=== PATIENT | male | born 1980 | race Caucasian/White ===

== ENCOUNTER 2018-11-10 19:03 | Emergency (ER) | payer OTHER, SELFPAY ==
[2018-11-10 19:06] VITALS: BP 142/89; PULSE 90; RESP 14; TEMP 36.8; O2SAT 100; BMI 25.7
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
--- NOTE | 2018-11-10 19:38 | DI.RAD.S_ITS ---
PROCEDURE: XR SHOULDER LT MIN 2V INDICATIONS: fall onto back, posterior shoulder/scapular spine pain TECHNIQUE: 3 views of the shoulder were acquired. COMPARISON: None. FINDINGS: Bones: No fractures or dislocations. No suspicious bony lesions. Visualized ribs appear intact. Soft tissues: Calcific tendinitis. IMPRESSION: No visualized acute fracture or dislocation. However, if clinical concern and/or pain persist, short interval imaging followup in 7-10 days is recommended, as occult injury cannot be definitively excluded. Dictated by: Minnie Anton M.D. on 11/10/2018 at 20:04 Approved by: Minnie Anton M.D. on 11/10/2018 at 20:04
[2018-11-10] MEDS: IBUPROFEN 400 MG TABLET 800 MG PO (19:41)
[2018-11-10 20:40] VITALS: BP 131/86; PULSE 75; RESP 12; O2SAT 100
== END 2018-11-10 20:43 | disposition home or self-care (01) ==
PROVIDERS: Emergency Provider Internal Medicine
DX: S40.012A Contusion of left shoulder, initial encounter (principal); S46.019A Strain of muscle(s) and tendon(s) of the rotator cuff of unspecified shoulder, initial encounter; W19.XXXA Unspecified fall, initial encounter
CPT/HCPCS: 73030; 99283

== ENCOUNTER 2018-12-21 18:00 | Emergency (ER) | payer OTHER, SELFPAY ==
[2018-12-21 18:11] VITALS: BP 126/77; PULSE 83; RESP 16; TEMP 36.6; O2SAT 100; BMI 24.1
--- NOTE | 2018-12-21 18:52 | ED.CHESTPAIN ---
HPI - Chest Pain General Chief Complaint: Chest Pain Stated Complaint: chest pain, dull, on left center Time Seen by Provider: 12/21/18 18:52 Source: patient Mode of arrival: ambulatory Limitations: no limitations History of Present Illness HPI narrative: The patient has been experiencing left upper chest pain for 2 weeks. The pain does not radiate. The pain is exacerbated somewhat by coughing, and deep breathing. He has no cardiac history. He has no associated dyspnea. He does not have hypertension, diabetes or hyperlipidemia. He is not a smoker. He fell on ice 1 month ago, landing hard on his back and injuring his left shoulder. He has no recent illness. The left anterior chest pain seemed to start at a time when the left shoulder was bothering him. he has undergone a 40 lb weight loss in recent months. In recent workup by his doctor, CMP, CBC and TSH were normal. Fecal occult samples are pending. He feels healthy, he feels good. He has no recent illness. He has no dyspnea, orthopnea or edema. There is no family history of early cardiac disease, cancer or thyroid disease. Related Data Home Medications Medication Instructions Recorded Confirmed No Known Home Medications 11/10/18 11/10/18 Allergies Allergy/AdvReac Type Severity Reaction Status Date / Time No Known Drug Allergies Allergy Verified 12/21/18 18:11 Review of Systems Review of Systems ROS Unobtainable: All systems reviewed & are unremarkable except as noted in HPI and below Constitutional Denies chills, Denies fever(s), Denies lethargy and Denies weakness ENT Ears, Nose, Mouth, and Throat: Denies change in voice, Denies neck pain and Denies sore throat Cardiovascular Reports as per HPI, Reports chest pain, Denies edema, Denies irregular heart rhythm, Denies lightheadedness, Denies palpitations, Denies dyspnea, Denies dyspnea on exertion and Denies orthopnea Respiratory Denies cough, Denies dyspnea, Denies dyspnea on exertion and Denies wheezing Gastrointestinal Gastrointestinal: Denies abdominal pain, Denies change in bowel habits, Denies diarrhea, Denies nausea and Denies vomiting Musculoskeletal Denies back pain and Denies neck pain Integumentary/Breasts Denies pruritus, Denies erythema, Denies rash and Denies wounds Neurologic Denies weakness Endocrine Denies palpitations Allergic/Immunologic Denies wheezing [facility] Medical History Hx of compression fracture of spine (Resolved) Surgical History No history of previous surgery (Acute) Family History Other Family history non-contributory Social History Smoking Status: Never smoker Family History Other Family history non-contributory Social History Smoking Status: Never smoker Exam Initial Vital Signs Initial Vital Signs: Vital Signs Temperature 97.8 F 12/21/18 18:11 Pulse Rate 83 12/21/18 18:11 Respiratory Rate 16 12/21/18 18:11 Blood Pressure 126/77 12/21/18 18:11 Pulse Oximetry 100 12/21/18 18:11 Const General: cooperative and well developed Nutritional Appearance: well nourished Orientation: alert, awake, oriented x3 and not confused HENMI Head: normocephalic and atraumatic Mouth: oral mucosae normal Throat: posterior oropharynx normal, tonsils normal and uvula midline Eyes General: appearance normal, both eyes and all related structures Eyelids: eyelids normal Conjunctivae: conjunctivae normal Sclera: sclerae normal Pupils: PERRL EOM: EOM intact bilaterally Neck Thyroid: thyroid normal Lymphatic: No lymphadenopathy Chest Chest: tenderness ( left upper costal margin) Resp Effort & Inspection: normal respiratory effort, able to speak in complete sentences, no respiratory distress and no use of accessory muscles Auscultation: clear to auscultation bilaterally, no rales, no rhonchi and no wheezes Cardio Rate: regular rate Rhythm: regular rhythm Heart Sounds: no click, no gallops, no murmurs and no rubs Pulses: normal peripheral pulses GI Inspection: non-distended Palpation: soft, no hepatosplenomegaly, No guarding, No pulsatile mass and No tender Auscultation: normal bowel sounds Back/Spine/Pelvis Back: normal to inspection and No back tenderness Skin General: no rashes or lesions noted Neuro General: alert, awake, oriented x3 and no focal motor deficits Speech: speech normal Extrem General: no pedal edema and no calf tenderness Course Orders Ordered: ED Orders 12/21/18 18:14 EKG-12 Lead Stat 12/21/18 19:20 D Dimer Stat Troponin & CK Cardiac Panel Stat Vital Signs - 8 hr 12/21/18 18:11 Temperature 97.8 F Pulse Rate 83 Respiratory Rate 16 Blood Pressure 126/77 Pulse Oximetry 100 MDM - Chest Pain Lab Data Lab Results 12/21/18 12/21/18 Range/Units 19:20 19:20 D-Dimer < 200 (<230) ng/mL Total Creatine Kinase 86 (55-170) U/L CK-MB (CK-2) TNP CK-MB (CK-2) Rel Index TNP Troponin I < 0.012 (0.01-0.034) ng/mL ECG Data Attestation: I personally reviewed and interpreted this ECG as follows: ( normal sinus rhythm rate 78 bpm. Normal intervals. No ectopy. No acute ST T wave changes.) [facility] Narrative Medical decision making narrative: From the evaluation the patient has chest wall pain. The patient recall the fall a month ago, he thinks the location the pain may be consistent with his shoulder injury at that time. He will be discharged home on OTC analgesics. Discharge Plan Departure Patient Disposition: Home Clinical Impression: Chest wall muscle strain Qualifiers: Encounter type: initial encounter Qualified Code(s): S29.011A - Strain of muscle and tendon of front wall of thorax, initial encounter Discharge Date/Time: 12/21/18 20:29 Interventions: ED Discharge Assessment Last Done: 12/21/18 20:28 Instructions: Costochondritis Activity Restrictions/Additional Instructions: Tylenol or Advil as needed for pain. Continue her evaluation with her own doctor, return the ER for worsening pain or difficulty breathing. Prescriptions: No Action No Known Home Medications RF: 0
[2018-12-21 19:40] LABS: Creatine Kinase 86 U/L (55-170)
[2018-12-21 19:53] LABS: Troponin I < 0.012 ng/mL (0.01-0.034)
[2018-12-21 20:02] LABS: D Dimer < 200 ng/mL (<230)
[2018-12-21 20:28] VITALS: BP 131/81; PULSE 77; RESP 16; TEMP 36.7; O2SAT 98
== END 2018-12-21 20:29 | disposition home or self-care (01) ==
PROVIDERS: Emergency Provider Emergency Medicine
DX: S29.011A Strain of muscle and tendon of front wall of thorax, initial encounter (principal)
CPT/HCPCS: 36415; 82550; 84484; 85379; 93005; 99282; 99284

== ENCOUNTER 2019-06-08 17:07 | Emergency (ER) | payer OTHER, SELFPAY ==
[2019-06-08 17:11] VITALS: BP 138/88; PULSE 79; RESP 18; TEMP 36.1; O2SAT 98; BMI 26.4
--- NOTE | 2019-06-08 17:14 | DI.RAD.S_ITS ---
PROCEDURE: XR STERNUM MIN 2V INDICATIONS: chest injury TECHNIQUE: 2 views of the sternum acquired. COMPARISON: [facility], CR, XR CHEST 2V, 06/08/2019, 17:17. FINDINGS: On the lateral view, a superior sternal fracture is suspected, which is mildly displaced. No additional focal bony abnormality can be seen. The lungs and the surrounding soft tissues demonstrate an unremarkable appearance. IMPRESSION: Suspected mildly displaced superior sternal fracture. Please consider a dedicated CT study for further evaluation. Dictated by: Quang Jolly M.D. on 06/08/2019 at 16:55 Approved by: Quang Jolly M.D. on 06/08/2019 at 16:56
--- NOTE | 2019-06-08 17:14 | DI.RAD.S_ITS ---
PROCEDURE: XR CHEST 2V INDICATIONS: chest injury TECHNIQUE: 2 views of the chest were acquired. COMPARISON: [facility], CR, XR SHOULDER LT MIN 2V, 11/10/2018, 19:41. [facility], CR, XR STERNUM MIN 2V, 06/08/2019, 17:17. FINDINGS: Surgical changes and devices: None. Lungs and pleura: Lungs are clear. No pleural effusions or pneumothorax. Mediastinum: Mediastinal contours are normal. Heart size is normal. Bones and chest wall: No suspicious bony abnormalities. Soft tissues appear unremarkable. IMPRESSION: Negative plain films. No pneumothorax is seen. (The suspected superior sternal fracture seen on the accompanying sternal plain films is not seen on this chest study.) Dictated by: Quang Jolly M.D. on 06/08/2019 at 16:56 Approved by: Quang Jolly M.D. on 06/08/2019 at 16:57
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
--- NOTE | 2019-06-09 04:54 | ED_ITS ---
HPI - Chest Pain General Chief Complaint: Chest Pain Stated Complaint: CHEST PAIN Source: patient Mode of arrival: ambulatory Limitations: no limitations History of Present Illness HPI narrative: 39-year-old male nonsmoker with benign medical history returns to the emergency department after is voluntary denial of care earlier today. Patient suffered injury and had x-rays ordered which noted sternal fracture. Th e patient was unable to stay but willing to return when he was called by nursing staff. The patient was climbing a ladder when it fell and he caught himself with his arms. He did not fall, but caught himself and was dangling a few feet off the ground. He then let himself to the ground and as he jumped down his arms cought on a ledge or metal bar and he felt a sudden pop and tearing sensation in his anterior chest. He denies any shortness of breath, cough or sputum production. He is not dizzy nor weak or lightheaded. He did not hurt his head neck or back. MD complaint: chest pain Onset (ago): hour(s) Onset: during rest Pain location: substernal Severity: moderate Quality: sharp Pain radiation: none Relieving factors: remaining still Exacerbating factors: palpation and movement Context: trauma/injury Treatments prior to arrival chest pain: none Related Data Previous Rx's Medication Instructions Recorded hydrocodone-acetaminophen 1 tab PO Q4-6H PRN #10 tab 06/09/19 Allergies Allergy/AdvReac Type Severity Reaction Status Date / Time No Known Drug Allergies Allergy Verified 06/08/19 17:11 Review of Systems Constitutional Denies chills, Denies fever(s), Denies lethargy and Denies weakness Eyes Denies change in vision, Denies eye discharge, Denies irritation and Denies loss of vision ENT Ears, Nose, Mouth, and Throat: Denies change in voice, Denies neck pain and Denies sore throat Cardiovascular Reports chest pain, Denies irregular heart rhythm, Denies lightheadedness, Denies palpitations, Denies dyspnea, Denies dyspnea on exertion and Denies orthopnea Respiratory Denies cough, Denies dyspnea, Denies dyspnea on exertion and Denies wheezing Gastrointestinal Gastrointestinal: Denies abdominal pain, Denies change in bowel habits, Denies diarrhea, Denies nausea and Denies vomiting Genitourinary Denies hematuria, Denies flank pain, Denies urinary incontinence and Denies urinary urgency Musculoskeletal Denies neck pain Integumentary/Breasts Denies pruritus, Denies erythema, Denies rash and Denies wounds Neurologic Denies confusion, Denies loss of vision and Denies weakness Psychiatric Denies anxiety, Denies confusion, Denies depression, Denies homicidal ideation and Denies suicidal ideation Endocrine Denies palpitations Hematologic/Lymphatic Denies easy bruising Allergic/Immunologic Denies wheezing PFSH Medical History Hx of compression fracture of spine (Resolved) Surgical History No history of previous surgery (Acute) Family History Other Family history non-contributory Social History Smoking Status: Never smoker Family History Other Family history non-contributory Social History Smoking Status: Never smoker Exam Narrative Exam Narrative: GENERAL: 39-year-old male resting comfortably, appears stated age, GCS 15 HEAD: Atraumatic. Normocephalic. No temporal or scalp tenderness. EYES: Pupils equal round and reactive. Extraocular motions intact. ENT: Nose without bleeding, purulent drainage or septal hematoma. NECK: Trachea midline. No JVD or lymphadenopathy. Supple, nontender CARDIOVASCULAR: Regular rate and rhythm without murmurs, gallops, or rubs. Anterior chest is tender to palp. No crepitance or deformity. RESPIRATORY: Clear to auscultation. Breath sounds equal bilaterally. No wheezes, rales, or rhonchi. GASTROINTESTINAL: Abdomen soft, non-tender, nondistended. No hepato- splenomegaly, or palpable masses. No guarding. EXTREMITIES: No clubbing, cyanosis, or edema. No joint tenderness, effusion, or edema noted. BACK: Nontender without deformity or crepitance. No flank tenderness. NEURO: AOx3. SKIN: No rash or erythema. Initial Vital Signs Initial Vital Signs: Vital Signs Temperature 97.0 F L 06/08/19 17:11 Pulse Rate 79 08/05/19 17:11 Respiratory Rate 18 06/08/19 17:11 Blood Pressure 138/88 06/08/19 17:11 Pulse Oximetry 98 06/08/19 17:11 MDM - Chest Pain Imaging Data CT scan - chest: Radiologist's impression: No Fx or other radiographic evidence of trauma Discharge Plan Departure Patient Disposition: Left Without Being Seen Clinical Impression: Patient left after triage Discharge Date/Time: 06/08/19 18:33
== END 2019-06-08 18:33 | disposition left against medical advice (07) ==
PROVIDERS: Emergency Provider Emergency Medicine
DX: Z53.21 Procedure and treatment not carried out due to patient leaving prior to being seen by health care provider (principal)
CPT/HCPCS: 71046; 71120

== ENCOUNTER 2019-06-08 22:11 | Emergency (ER) | payer OTHER, SELFPAY ==
[2019-06-08 22:28] VITALS: PULSE 80; RESP 18; TEMP 37; O2SAT 98; BMI 27.0
[2019-06-08 22:34] VITALS: BP 139/91; PULSE 91
--- NOTE | 2019-06-08 22:34 | DI.CT.S_ITS ---
PROCEDURE: CT CHEST W CON INDICATIONS: trauma, sternal fracture TECHNIQUE: After the administration of intravenous contrast, 5 mm thick sections acquired from the pulmonary apices to the posterior costophrenic angles. 1 mm axial lung, 5 mm thick coronal and sagittal reformats and 7 mm axial MIP were acquired. For radiation dose reduction, the following was used: automated exposure control, adjustment of mA and/or kV according to patient size. COMPARISON: [facility], CR, XR STERNUM MIN 2V, 06/08/2019, 17:17. [facility], CR, XR CHEST 2V, 06/08/2019, 17:17. FINDINGS: Image quality: Excellent. Lungs and pleura: No acute air space opacities. No pleural effusions or pneumothorax. Central and peripheral airways are patent and normal in caliber. Mediastinum: Heart size is normal. No pericardial effusion. No mediastinal or hilar adenopathy by size criteria. Thoracic aorta and central pulmonary arteries are normal in size. Esophagus is normal in caliber. No hiatal hernia. Bones and chest wall: No suspicious bony lesions. No vertebral body compression fractures. No axillary or supraclavicular adenopathy by size criteria. Thyroid gland appears normal. Abdomen: Visualized upper abdominal solid organs appear normal. Upper abdominal bowel loops are normal in caliber. IMPRESSION: A prior sternal plain film study earlier same day had raised concern for presence of a sternal fracture, mildly displaced. The current study shows that the configuration of the sternum represents normal sternal segmentation anatomy, and no fracture or retrosternal edema is present. Elsewhere no trauma found. Normal for age. Note: These findings are concordant with the preliminary interpretation. Dictated by: Remington Garduno M.D. on 06/09/2019 at 8:30 Approved by: Remington Garduno M.D. on 06/09/2019 at 8:33
[2019-06-08 22:47] LABS: Add Manual Diff / Slide Review NO; Basophils Absolute Auto 100 /uL (0-100); Basophils Percent Auto 1.3 % (0-2); Eosinophils Absolute Auto 300 /uL (0-450); Eosinophils Percent Auto 3.5 % (2-4); Hematocrit 40.8 % (41-53); Hemoglobin 14.3 g/dL (13.5-17.5); Lymphocytes Absolute Auto 2900 /uL (1100-4500); Lymphocytes Percent Auto 38.3 % (25-40); Mean Corpuscular HGB Conc 35.1 % (30-36); Mean Corpuscular Hemoglobin 31.1 PG (26-34); Mean Corpuscular Volume 88.7 fL (80-100); Monocytes Absolute Auto 700 /uL (0-900); Monocytes Percent Auto 9.4 % (3-14); Neutrophils Absolute Auto 3600 /uL (1500-7000); Neutrophils Percent Auto 47.5 % (50-75); Platelet Count 236 X10^3/uL (150-400); Red Cell Distribution Width 12.9 % (11.6-14.8); White Blood Cell Count 7.5 X10^3/uL (4.5-11.0)
[2019-06-08 22:51] LABS: BUN Creatinine Ratio 15.6 (6-22); Blood Urea Nitrogen 14 mg/dL (9-20); Calcium 9.3 mg/dL (8.4-10.2); Carbon Dioxide 26 mmol/L (22-32); Chloride 104 mmol/L (98-107); Estimated Glomerular Filt Rate > 60.0 mL/min (>60); Glucose 95 mg/dL (70-100); HEMOLYSIS < 15 (0-50); Potassium 3.5 mmol/L (3.4-5.1); Sodium 140 mmol/L (137-145)
[2019-06-08 23:16] VITALS: BP 131/77; PULSE 85; RESP 16; O2SAT 98
[2019-06-09 00:59] VITALS: BP 123/70; PULSE 68; RESP 18; O2SAT 98
[2019-06-09] MEDS: HYDROCODONE/ACET 5/325 PREPACK 1 BOTTLE MISC (00:59)
--- NOTE | 2019-06-09 06:17 | ED.CHESTPAIN ---
HPI - Chest Pain General Chief Complaint: Chest Pain Stated Complaint: CHEST PAIN Time Seen by Provider: 06/08/19 22:20 Source: patient Mode of arrival: ambulatory Limitations: no limitations History of Present Illness HPI narrative: 39-year-old male nonsmoker with benign medical history returns to the emergency department after a voluntary denial of care earlier today. The patient suffered an injury and had x-rays ordered which noted a sternal fracture. The patient was unable to stay but willing to return when he was called back by nursing staff. The patient had been climbing a ladder when he fell and he caught himself with his arms. He did not fall, but instead caught himself and was dangling a few feet off the ground. He then let himself to the ground and as he jumped down his arms caught on a ledge and he felt a sudden pop and tearing sensation in his anterior chest. He denies any shortness of breath, cough or sputum production. He is not dizzy nor weak or lightheaded. He did not hurt his head, neck, or back. MD complaint: chest pain Onset (ago): hour(s) Duration: constant Pain location: substernal Severity: moderate Quality: sharp Pain radiation: none Relieving factors: remaining still Exacerbating factors: inspiration, palpation and movement Context: trauma/injury Related Data Previous Rx's Medication Instructions Recorded hydrocodone-acetaminophen 1 tab PO Q4-6H PRN #10 tab 06/09/19 Allergies Allergy/AdvReac Type Severity Reaction Status Date / Time No Known Drug Allergies Allergy Verified 06/08/19 17:11 Review of Systems Constitutional Denies chills, Denies fever(s), Denies lethargy and Denies weakness Eyes Denies change in vision, Denies eye discharge, Denies irritation and Denies loss of vision ENT Ears, Nose, Mouth, and Throat: Denies change in voice, Denies neck pain and Denies sore throat Cardiovascular Reports chest pain, Denies irregular heart rhythm, Denies lightheadedness, Denies palpitations, Denies dyspnea, Denies dyspnea on exertion and Denies orthopnea Respiratory Denies cough, Denies dyspnea, Denies dyspnea on exertion and Denies wheezing Gastrointestinal Gastrointestinal: Denies abdominal pain, Denies change in bowel habits, Denies diarrhea, Denies nausea and Denies vomiting Genitourinary Denies hematuria, Denies flank pain, Denies urinary incontinence and Denies urinary urgency Musculoskeletal Denies neck pain Integumentary/Breasts Denies pruritus, Denies erythema, Denies rash and Denies wounds Neurologic Denies confusion, Denies loss of vision and Denies weakness Psychiatric Denies anxiety, Denies confusion, Denies depression, Denies homicidal ideation and Denies suicidal ideation Endocrine Denies palpitations Hematologic/Lymphatic Denies easy bruising Allergic/Immunologic Denies wheezing PFSH Medical History Hx of compression fracture of spine (Resolved) Surgical History No history of previous surgery (Acute) Family History Other Family history non-contributory Social History Smoking Status: Never smoker Family History Other Family history non-contributory Social History Smoking Status: Never smoker Exam Narrative Exam Narrative: GENERAL: A 39-year-old male resting comfortably, appears stated age, GCS 15 HEAD: Atraumatic. Normocephalic. No temporal or scalp tenderness. EYES: Pupils equal round and reactive. Extraocular motions intact. No scleral icterus. No injection or drainage. ENT: Nose without bleeding, purulent drainage or septal hematoma. Throat without erythema, tonsillar hypertrophy or exudate. Uvula midline. Airway patent. NECK: Trachea midline. No JVD or lymphadenopathy. Supple, nontender, no meningeal signs. CARDIOVASCULAR: Regular rate and rhythm without murmurs, gallops, or rubs. RESPIRATORY: Anterior chest is tender to palpation, no obvious deformity, no crepitance Clear to auscultation. Breath sounds equal bilaterally. No wheezes, rales, or rhonchi. GASTROINTESTINAL: Abdomen soft, non-tender, nondistended. No hepato-splenomegaly, or palpable masses. No guarding. EXTREMITIES: No clubbing, cyanosis, or edema. No joint tenderness, effusion, or edema noted. BACK: Nontender without deformity or crepitance. No flank tenderness. NEURO: AOx3. SKIN: No rash or erythema. Initial Vital Signs Initial Vital Signs: Vital Signs Temperature 98.6 F 06/08/19 22:28 Pulse Rate 80 06/08/19 22:28 Respiratory Rate 18 06/08/19 22:28 Pulse Oximetry 98 06/08/19 22:28 Course Orders Ordered: Discontinued Medications Hydrocodone Bitart/Acetaminophen (Vicodin Prepack) 1 bottle MISC SEEINSTR ONE Stop: 06/09/19 00:48 Last Admin: 06/09/19 00:59 Dose: 1 bottle Vital Signs - 8 hr 06/08/19 22:28 06/08/19 22:34 06/08/19 23:16 Temperature 98.6 F Pulse Rate 80 91 H 85 Respiratory Rate 18 16 Blood Pressure Blood Pressure [Right Arm] 139/91 H 131/77 Pulse Oximetry 98 98 06/09/19 00:59 Temperature Pulse Rate 68 Respiratory Rate 18 Blood Pressure 123/70 Blood Pressure [Right Arm] Pulse Oximetry 98 MDM - Chest Pain Lab Data Result diagrams: 06/08/19 22:30 06/08/19 22:30 Lab Results 06/08/19 06/08/19 Range/Units 22:30 22:30 WBC 7.5 (4.5-11.0) X10^3/uL RBC 4.60 (4.5-5.9) X10^6/uL Hgb 14.3 (13.5-17.5) g/dL Hct 40.8 L (41-53) % MCV 88.7 (80-100) fL MCH 31.1 (26-34) PG MCHC 35.1 (30-36) % RDW 12.9 (11.6-14.8) % Plt Count 236 (150-400) X10^3/uL Neut % (Auto) 47.5 L (50-75) % Lymph % (Auto) 38.3 (25-40) % [place] % (Auto) 9.4 (3-14) % Eos % (Auto) 3.5 (2-4) % Baso % (Auto) 1.3 (0-2) % Neut # (Auto) 3600 (3904-8774) /uL Lymph # (Auto) 2900 (1426-5013) /uL [place] # (Auto) 700 (0-900) /uL Eos # (Auto) 300 (0-450) /uL Baso # (Auto) 100 (0-100) /uL Sodium 140 (137-145) mmol/L Potassium 3.5 (3.4-5.1) mmol/L Chloride 104 (98-107) mmol/L Carbon Dioxide 26 (22-32) mmol/L BUN 14 (9-20) mg/dL Creatinine 0.90 (0.66-1.25) mg/dL Estimated GFR > 60.0 (>60) mL/min BUN/Creatinine Ratio 15.6 (6-22) Glucose 95 (70-100) mg/dL Calcium 9.3 (8.4-10.2) mg/dL Imaging Data CT scan - chest: Radiologist's impression: [address] [address] [address] Scan Report Signed Patient: Blajit Pabon KMR#: [id number] : 1980Acct:[id number] Age/Sex: 39 / MDate of Service: 06/08/19 Loc: ED Accession Number: [id number] Procedure: CT chest w con Ordering Provider: Matt Stubbs D.O. PROCEDURE: CT CHEST W CON INDICATIONS: trauma, sternal fracture TECHNIQUE: After the administration of intravenous contrast, 5 mm thick sections acquired from the pulmonary apices to the posterior costophrenic angles. 1 mm axial lung, 5 mm thick coronal and sagittal reformats and 7 mm axial MIP were acquired. For radiation dose reduction, the following was used: automated exposure control, adjustment of mA and/or kV according to patient size. COMPARISON: [facility], CR, XR STERNUM MIN 2V, 06/08/2019, 17:17. [facility], CR, XR CHEST 2V, 06/08/2019, 17:17. FINDINGS: Image quality: Excellent. Lungs and pleura: No acute air space opacities. No pleural effusions or pneumothorax. Central and peripheral airways are patent and normal in caliber. Mediastinum: Heart size is normal. No pericardial effusion. No mediastinal or hilar adenopathy by size criteria. Thoracic aorta and central pulmonary arteries are normal in size. Esophagus is normal in caliber. No hiatal hernia. Bones and chest wall: No suspicious bony lesions. No vertebral body compression fractures. No axillary or supraclavicular adenopathy by size criteria. Thyroid gland appears normal. Abdomen: Visualized upper abdominal solid organs appear normal. Upper abdominal bowel loops are normal in caliber. IMPRESSION: A prior sternal plain film study earlier same day had raised concern for presence of a sternal fracture, mildly displaced. The current study shows that the configuration of the sternum represents normal sternal segmentation anatomy, and no fracture or retrosternal edema is present. Elsewhere no trauma found. Normal for age. Note: These findings are concordant with the preliminary interpretation. Dictated by: Remington Garduno M.D. on 06/09/2019 at 8:30 Approved by: Remington Garduno M.D. on 06/09/2019 at 8:33 Discharge Plan Departure Patient Disposition: Home Clinical Impression: Chest wall muscle strain Qualifiers: Encounter type: initial encounter Qualified Code(s): S29.011A - Strain of muscle and tendon of front wall of thorax, initial encounter Discharge Date/Time: 06/09/19 01:00 Interventions: ED Discharge Assessment Last Done: 06/09/19 00:59 Instructions: DI for Atypical Chest Pain Activity Restrictions/Additional Instructions: You have been prescribed narcotic medications. While on these medications you cannot drive or operate heavy machinery. Additionally you cannot sign legal documents or perform any duties such as this. 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 Please understand that we cannot provide further refills of narcotics or controlled substances through the ED and your pain management will need to be through your Primary Care Provider Prescriptions: New hydrocodone-acetaminophen 5-325 mg tablet 1 tab PO Q4-6H PRN (Reason: pain) Qty: 10 RF: 0
--- NOTE | 2019-06-09 21:38 | ED_ITS ---
HPI - Chest Pain General Chief Complaint: Chest Pain Stated Complaint: CHEST PAIN Time Seen by Provider: 06/08/19 22:20 Source: patient Mode of arrival: ambulatory Limitations: no limitations History of Present Illness HPI narrative: 39-year-old male nonsmoker with benign medical history returns to the emergency department after a voluntary denial of care earlier today. The patient suffered an injury and had x-rays ordered which noted a sternal fracture. The patient was unable to stay but willing to return when he was called back by nursing staff. The patient had been climbing a ladder when he fell and he caught himself with his arms. He did not fall, but instead caught himself and was dangling a few feet off the ground. He then let himself to the ground and as he jumped down his arms caught on a ledge and he felt a sudden pop and tearing sensation in his anterior chest. He denies any shortness of breath, cough or sputum production. He is not dizzy nor weak or lightheaded. He did not hurt his head, neck, or back. MD complaint: chest pain Onset (ago): hour(s) Duration: constant Pain location: substernal Severity: moderate Quality: sharp Pain radiation: none Relieving factors: remaining still Exacerbating factors: inspiration, palpation and movement Context: trauma/injury Related Data Previous Rx's Medication Instructions Recorded hydrocodone-acetaminophen 1 tab PO Q4-6H PRN #10 tab 06/09/19 Allergies Allergy/AdvReac Type Severity Reaction Status Date / Time No Known Drug Allergies Allergy Verified 06/08/19 17:11 Review of Systems Constitutional Denies chills, Denies fever(s), Denies lethargy and Denies weakness Eyes Denies change in vision, Denies eye discharge, Denies irritation and Denies loss of vision ENT Ears, Nose, Mouth, and Throat: Denies change in voice, Denies neck pain and Denies sore throat Cardiovascular Reports chest pain, Denies irregular heart rhythm, Denies lightheadedness, Denies palpitations, Denies dyspnea, Denies dyspnea on exertion and Denies orthopnea Respiratory Denies cough, Denies dyspnea, Denies dyspnea on exertion and Denies wheezing Gastrointestinal Gastrointestinal: Denies abdominal pain, Denies change in bowel habits, Denies diarrhea, Denies nausea and Denies vomiting Genitourinary Denies hematuria, Denies flank pain, Denies urinary incontinence and Denies urinary urgency Musculoskeletal Denies neck pain Integumentary/Breasts Denies pruritus, Denies erythema, Denies rash and Denies wounds Neurologic Denies confusion, Denies loss of vision and Denies weakness Psychiatric Denies anxiety, Denies confusion, Denies depression, Denies homicidal ideation and Denies suicidal ideation Endocrine Denies palpitations Hematologic/Lymphatic Denies easy bruising Allergic/Immunologic Denies wheezing PFSH Medical History Hx of compression fracture of spine (Resolved) Surgical History No history of previous surgery (Acute) Family History Other Family history non-contributory Social History Smoking Status: Never smoker Family History Other Family history non-contributory Social History Smoking Status: Never smoker Exam Narrative Exam Narrative: GENERAL: A 39-year-old male resting comfortably, appears stated age, GCS 15 HEAD: Atraumatic. Normocephalic. No temporal or scalp tenderness. EYES: Pupils equal round and reactive. Extraocular motions intact. No scleral icterus. No injection or drainage. ENT: Nose without bleeding, purulent drainage or septal hematoma. Throat without erythema, tonsillar hypertrophy or exudate. Uvula midline. Airway patent. NECK: Trachea midline. No JVD or lymphadenopathy. Supple, nontender, no meningeal signs. CARDIOVASCULAR: Regular rate and rhythm without murmurs, gallops, or rubs. RESPIRATORY: Anterior chest is tender to palpation, no obvious deformity, no crepitance Clear to auscultation. Breath sounds equal bilaterally. No wheezes, rales, or rhonchi. GASTROINTESTINAL: Abdomen soft, non-tender, nondistended. No hepato-splenomeg samir, or palpable masses. No guarding. EXTREMITIES: No clubbing, cyanosis, or edema. No joint tenderness, effusion, or edema noted. BACK: Nontender without deformity or crepitance. No flank tenderness. NEURO: AOx3. SKIN: No rash or erythema. Initial Vital Signs Initial Vital Signs: Vital Signs Temperature 98.6 F 06/08/19 22:28 Pulse Rate 80 06/08/19 22:28 Respiratory Rate 18 06/08/19 22:28 Pulse Oximetry 98 06/08/19 22:28 Course Orders Ordered: Discontinued Medications Hydrocodone Bitart/Acetaminophen (Vicodin Prepack) 1 bottle MISC SEEINSTR ONE Stop: 06/09/19 00:48 Last Admin: 06/09/19 00:59 Dose: 1 bottle Vital Signs - 8 hr 06/08/19 22:28 06/08/19 22:34 06/08/19 23:16 Temperature 98.6 F Pulse Rate 80 91 H 85 Respiratory Rate 18 16 Blood Pressure Blood Pressure [Right Arm] 139/91 H 131/77 Pulse Oximetry 98 98 06/09/19 00:59 Temperature Pulse Rate 68 Respiratory Rate 18 Blood Pressure 123/70 Blood Pressure [Right Arm] Pulse Oximetry 98 MDM - Chest Pain Lab Data Result diagrams: 06/08/19 22:30 06/08/19 22:30 Lab Results 06/08/19 06/08/19 Range/Units 22:30 22:30 WBC 7.5 (4.5-11.0) X10^3/uL RBC 4.60 (4.5-5.9) X10^6/uL Hgb 14.3 (13.5-17.5) g/dL Hct 40.8 L (41-53) % MCV 88.7 (80-100) fL MCH 31.1 (26-34) PG MCHC 35.1 (30-36) % RDW 12.9 (11.6-14.8) % Plt Count 236 (150-400) X10^3/uL Neut % (Auto) 47.5 L (50-75) % Lymph % (Auto) 38.3 (25-40) % [place] % (Auto) 9.4 (3-14) % Eos % (Auto) 3.5 (2-4) % Baso % (Auto) 1.3 (0-2) % Neut # (Auto) 3600 (4885-1899) /uL Lymph # (Auto) 2900 (4786-0726) /uL [place] # (Auto) 700 (0-900) /uL Eos # (Auto) 300 (0-450) /uL Baso # (Auto) 100 (0-100) /uL Sodium 140 (137-145) mmol/L Potassium 3.5 (3.4-5.1) mmol/L Chloride 104 (98-107) mmol/L Carbon Dioxide 26 (22-32) mmol/L BUN 14 (9-20) mg/dL Creatinine 0.90 (0.66-1.25) mg/dL Estimated GFR > 60.0 (>60) mL/min BUN/Creatinine Ratio 15.6 (6-22) Glucose 95 (70-100) mg/dL Calcium 9.3 (8.4-10.2) mg/dL Imaging Data CT scan - chest: Radiologist's impression: [place] [address] CT Scan Report Signed Patient: Baljit Pabon KMR#: [id number] : 1980Acct:[id number] Age/Sex: 39 / MDate of Service: 06/08/19 Loc: ED Accession Number: [id number] Procedure: CT chest w con Ordering Provider: Matt Stubbs D.O. PROCEDURE: CT CHEST W CON INDICATIONS: trauma, sternal fracture TECHNIQUE: After the administration of intravenous contrast, 5 mm thick sections acquired from the pulmonary apices to the posterior costophrenic angles. 1 mm axial lung, 5 mm thick coronal and sagittal reformats and 7 mm axial MIP were acquired. For radiation dose reduction, the following was used: automated exposure control, adjustment of mA and/or kV according to patient size. COMPARISON: [facility], CR, XR STERNUM MIN 2V, 06/08/2019, 17:17. [facility], CR, XR CHEST 2V, 06/08/2019, 17:17. FINDINGS: Image quality: Excellent. Lungs and pleura: No acute air space opacities. No pleural effusions or pneumothorax. Central and peripheral airways are patent and normal in caliber. Mediastinum: Heart size is normal. No pericardial effusion. No mediastinal or hilar adenopathy by size criteria. Thoracic aorta and central pulmonary arteries are normal in size. Esophagus is normal in caliber. No hiatal hernia. Bones and chest wall: No suspicious bony lesions. No vertebral body compression fractures. No axillary or supraclavicular adenopathy by size criteria. Thyroid gland appears normal. Abdomen: Visualized upper abdominal solid organs appear normal. Upper abdominal bowel loops are normal in caliber. IMPRESSION: A prior sternal plain film study earlier same day had raised concern for presence of a sternal fracture, mildly displaced. The current study shows that the configuration of the sternum represents normal sternal segmentation anatomy, and no fracture or retrosternal edema is present. Elsewhere no trauma found. Normal for age. Note: These findings are concordant with the preliminary interpretation. Dictated by: Remington Garduno M.D. on 06/09/2019 at 8:30 Approved by: Remington Garduno M.D. on 06/09/2019 at 8:33 Discharge Plan Departure Patient Disposition: Home Clinical Impression: Chest wall muscle strain Qualifiers: Encounter type: initial encounter Qualified Code(s): S29.011A - Strain of muscle and tendon of front wall of thorax, initial encounter Discharge Date/Time: 06/09/19 01:00 Interventions: ED Discharge Assessment Last Done: 06/09/19 00:59 Instructions: DI for Atypical Chest Pain Activity Restrictions/Additional Instructions: You have been prescribed narcotic medications. While on these medications you cannot drive or operate heavy machinery. Additionally you cannot sign legal documents or perform any duties such as this. 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 Please understand that we cannot provide further refills of narcotics or controlled substances through the ED and your pain management will need to be through your Primary Care Provider Prescriptions: New hydrocodone-acetaminophen 5-325 mg tablet 1 tab PO Q4-6H PRN (Reason: pain) Qty: 10 RF: 0
== END 2019-06-09 01:00 | disposition home or self-care (01) ==
PROVIDERS: Emergency Provider Emergency Medicine
DX: S29.011A Strain of muscle and tendon of front wall of thorax, initial encounter (principal); W11.XXXA Fall on and from ladder, initial encounter
CPT/HCPCS: 36591; 71046; 71120; 71260; 80048; 85025; 99281; 99282; 99284; Q9967

== ENCOUNTER → 2022-11-08 10:05 | Outpatient (CLI) | payer OTHER, SELFPAY ==
[2022-11-09 17:08] LABS: Testosterone, Free 8.9 pg/mL (6.8-21.5)
== END ==
PROVIDERS: PCP Naturopath; Referring Provider Urology; Visit Provider Urology
DX: E29.1 Testicular hypofunction (principal)
CPT/HCPCS: 36415; 84402